=== PATIENT | female | born 2000 | race Caucasian/White ===

== ENCOUNTER 2024-06-13 08:12 | Day surgery (SDC) | payer OTHER ==
[2024-06-13] MEDS ORDERED: hydrALAZINE 20 MG/ML VIAL SLOW IVP PRN (08:52)
[2024-06-13] MEDS: Morphine 4 MG/ML VIAL IM SCH (12:31)
== END 2024-06-13 13:12 | disposition home or self-care (01) ==
LOC: CSHLD/OP 08:12
PROVIDERS: ATTEND Obstetrics & Gynecology
DX: O47.1 False labor at or after 37 completed weeks of gestation (principal); O26.853 Spotting complicating pregnancy, third trimester; O23.43 Unspecified infection of urinary tract in pregnancy, third trimester; O99.343 Other mental disorders complicating pregnancy, third trimester; F32.9 Major depressive disorder, single episode, unspecified; O99.513 Diseases of the respiratory system complicating pregnancy, third trimester; J30.2 Other seasonal allergic rhinitis; O43.193 Other malformation of placenta, third trimester; Z3A.38 38 weeks gestation of pregnancy; Z79.899 Other long term (current) drug therapy
CPT/HCPCS: 99283; J2272

== ENCOUNTER 2024-06-13 21:33 | Inpatient (IN) | payer OTHER ==
[2024-06-13] MEDS ORDERED: hydrALAZINE 20 MG/ML VIAL SLOW IVP PRN ×2 (21:54→22:32)
[2024-06-13 21:56] VITALS: BMI 30.9
[2024-06-13] MEDS ORDERED: Methylergonovine 0.2 MG/ML VIAL IM PRN ×2 (22:32→23:14)
[2024-06-13] MEDS ORDERED: Carboprost 250 MCG/ML AMP IM PRN ×2 (22:32→23:14)
[2024-06-13] MEDS ORDERED: Diphenoxylate HCl/Atropine Tablet PO PRN ×2 (22:32→23:14)
[2024-06-13] MEDS ORDERED: Ondansetron PF 4 MG/2 ML Vial IVP PRN ×2 (22:32→23:41)
[2024-06-13] MEDS ORDERED: Lidocaine 1% (PF) 30 ML VIAL SC PRN (22:32)
[2024-06-13] MEDS ORDERED: Misoprostol 200 MCG TAB PR PRN ×2 (22:32→23:14)
[2024-06-13] MEDS ORDERED: Promethazine HCl 25 MG/ML VIAL IM PRN ×3 (22:32→23:41)
[2024-06-13] MEDS ORDERED: Tranexamic Acid 1,000 MG/10 ML VIAL IVP PRN ×2 (22:32→23:14)
[2024-06-13] MEDS ORDERED: Oxytocin 30 units/NS 500 ML 500 ML IV SCH ×3 (22:45→23:15)
[2024-06-13 23:17] LABS: Hemoglobin 11.3 g/dL (12.0-15.5); Mean Corpuscular HGB CONC 33.2 g/dL (32.0-36.0); Mean Corpuscular Hemoglobin 28.1 pg (27.0-33.0); Mean Corpuscular Volume 84.6 fL (81.6-98.3); Mean Platelet Volume 11.3 fL (7.4-10.4); Platelet Count 192 10x3/uL (150-450); RBC Distribution Width 14.9 % (11.5-14.5); Red Blood Cell (RBC) Count 4.02 10x6/uL (3.90-5.03); White Blood Cell (WBC) Count 17.2 10x3/uL (3.5-10.5)
[2024-06-13] MEDS ORDERED: Lidocaine 1% (PF) 30 ML VIAL SC SCH (23:30)
[2024-06-13 23:37] LABS: HBsAg Index 0.25 S/CO (0-0.99); Hep B Surf Ag - L&D Non-Reactive S/CO (NonReactive)
[2024-06-13 23:38] LABS: Syphilis Antibody Nonreactive (Nonreactive); Syphilis Antibody Index 0.05 S/CO (<1.00 Non-Reactive)
[2024-06-13] MEDS: fentaNYL/Ropivacaine Epidural 100 ML ONE (23:39)
[2024-06-13] MEDS ORDERED: Moisturizing Cream (Eucerin) 113 GM JAR TOP PRN (23:41)
[2024-06-13] MEDS ORDERED: Lactated Ringer's 500 ML IV PRN (23:41)
[2024-06-13] MEDS ORDERED: diphenhydrAMINE 50 MG/ML VIAL IVP PRN (23:41)
[2024-06-13] MEDS ORDERED: Naloxone HCl 0.4 mg/ml Vial IVP PRN ×2 (23:41)
[2024-06-13] MEDS ORDERED: Communication Order-Pharmacy FS SCH (23:45)
[2024-06-14] MEDS: ePHEDrine Sulfate 50 MG/10 ML VIAL SLOW IVP PRN (04:13)
[2024-06-14] MEDS: Oxytocin 30 units/NS 500 ML 500 ML IV SCH (06:35)
[2024-06-14] MEDS: fentaNYL 2 mcg/Ropivacaine 0.2% Epidural 100 ML CADD EPIDURAL SCH (12:05)
[2024-06-14] MEDS: Ondansetron PF 4 MG/2 ML Vial IVP PRN (12:32)
[2024-06-14] MEDS ORDERED: Ondansetron PF 4 MG/2 ML Vial IVP PRN (13:24)
[2024-06-14] MEDS ORDERED: Promethazine HCl 25 MG/ML VIAL IM PRN (13:24)
[2024-06-14] MEDS ORDERED: hydrALAZINE 20 MG/ML VIAL SLOW IVP PRN (13:24)
[2024-06-14] MEDS ORDERED: Bisacodyl 10 MG SUPP PR PRN (13:24)
[2024-06-14] MEDS ORDERED: Methylergonovine 0.2 MG/ML VIAL IM PRN (13:24)
[2024-06-14] MEDS ORDERED: Preparation H Ointment 28 GM TUBE PR PRN (13:24)
[2024-06-14] MEDS ORDERED: Milk Of Magnesia 30 ML UDCUP PO PRN (13:24)
[2024-06-14] MEDS ORDERED: Misoprostol 200 MCG TAB VAG PRN (13:24)
[2024-06-14] MEDS: Ibuprofen 800 MG TAB PO SCH (14:39)
[2024-06-14] MEDS: Boostrix 0.5 ML (Tdap) VIAL (>/=7 yrs of age) IM ONE (16:05)
[2024-06-14] MEDS: Ferrous Sulfate 325 MG TAB PO SCH (16:09)
[2024-06-14] MEDS: Lactated Ringer's 1,000 ML IV SCH (16:10)
[2024-06-14] MEDS: Acetaminophen 325 MG TAB PO PRN (16:12)
[2024-06-14] MEDS: Docusate 100 MG CAP PO SCH (21:54)
[2024-06-15] MEDS: Prenatal Vitamin 1 TAB PO SCH (09:10)
[2024-06-15] MEDS ORDERED: Bupivacaine/Epinephrine 0.25% 30 ML VIAL ONE (13:00)
[2024-06-15] MEDS ORDERED: ePHEDrine Sulfate 50 MG/10 ML VIAL ONE (13:00)
[2024-06-15 20:13] VITALS: TEMP 97.9
[2024-06-16 08:16] VITALS: BP 110/65
== END 2024-06-16 10:04 | disposition home or self-care (01) | DRG 806 ==
LOC: CSHLD/OP 21:33 → EDSTATUS 23:08 → CSHLD 23:08 → CSHPP 06-14 15:50
PROVIDERS: ADMIT Family Medicine; ATTEND Family Medicine
PROC: 10E0XZZ Delivery of Products of Conception, External Approach (ICD-10-PCS; principal; 2024-06-14)
PROC: 0KQM0ZZ Repair Perineum Muscle, Open Approach (ICD-10-PCS; 2024-06-14)
PROC: 10H07YZ Insertion of Other Device into Products of Conception, Via Natural or Artificial Opening (ICD-10-PCS; 2024-06-14)
DX: O75.3 Other infection during labor (principal); N39.0 Urinary tract infection, site not specified; Z37.0 Single live birth; O71.7 Obstetric hematoma of pelvis; O71.4 Obstetric high vaginal laceration alone; Z3A.38 38 weeks gestation of pregnancy
CPT/HCPCS: 36415; 51702; 85027; 86780; 86850; 86900; 86901; 87340; 99283; 99285; J2272; J2405; J2590